=== PATIENT | female | born 1970 | race Two or more races ===

== ENCOUNTER 2023-03-25 20:10 | Emergency (ER) | payer OTHER ==
[~2023-03-25] VITALS: Ht 172.7 cm; Wt 108.5 kg
[2023-03-25 21:31] LABS: Basophils # (auto) 0.1 10 ^3/uL (0-0.2); Basophils % (auto) 0.6 % (0.0-2.0); Eosinophils # (auto) 0.1 10 ^3/uL (0-0.8); Eosinophils % (auto) 0.9 % (0.0-7.0); Hematocrit 43.8 % (36.0-46.0); Hemoglobin 14.6 g/dL (12.2-16.2); Lymphocytes # (auto) 1.4 10 ^3/uL (0.4-5.4); Mean Corpuscular Hemoglobin 28.8 pg (28.0-32.0); Mean Corpuscular Hgb Conc. 33.4 g/dL (32.0-36.0); Mean Corpuscular Volume 86.4 fL (80.0-100.0); Monocytes # (auto) 0.7 10 ^3/uL (0-1.3); Neutrophils # (auto) 7.7 10 ^3/uL (1.6-8.6); Neutrophils % (auto) 77.5 % (37.0-80.0); Nucleated Red Blood Cells % 0.1 %; Red Blood Cells 5.06 10^6/uL (4.0-5.20); Red Cell Distribution Width 14.8 % (11.8-14.3)
[2023-03-25 21:51] LABS: Alanine Aminotransferase 500 U/L (7-40); Alkaline Phosphatase 277 U/L (46-116); Anion Gap 8 (5-15); Aspartate Aminotransferase 386 U/L (13-40); Calcium 9.6 mg/dL (8.7-10.4); Carbon Dioxide 25 mmol/L (20-30); Chloride 103 mmol/L (98-107); Glucose 109 mg/dL (74-106); Lipase 45 U/L (12-53); Potassium 3.7 mmol/L (3.5-5.1); Sodium 136 mmol/L (136-145)
[2023-03-25 21:52] LABS: Albumin 4.7 g/dL (3.2-4.8)
[2023-03-25 21:54] LABS: BUN/Creatinine Ratio 6.8 (10.0-20.0); Blood Urea Nitrogen < 5 mg/dL (9-23)
[2023-03-25 22:22] LABS: Urine Bacteria NONE SEEN /hpf (None Seen); Urine Blood Negative /uL (Negative); Urine Clarity Clear (Clear); Urine Color Yellow (Yellow); Urine Protein, UAD Negative (Negative); Urine Specific Gravity 1.004 (1.001-1.035); Urine Urobilinogen Normal (Negative); Urine WBC 1 /hpf (0 - 5); Urine pH 6.5 (5.0-8.0)
[2023-03-26] MEDS ORDERED: ZOFR4T PO (03:06)
[2023-03-26] MEDS ORDERED: DICY10CA PO (03:06)
[2023-03-26] MEDS ORDERED: FAMO20TA10 PO (03:13)
[2023-03-26 09:59] VITALS: BP 136/72; TEMP 97.6
[2023-03-26 10:00] VITALS: PULSE 72; RESP 16; O2SAT 96
[2023-03-27 09:13] LABS: Hepatitis B Surface Antigen Negative (Negative)
[2023-03-27 09:33] LABS: Hepatitis A Ab IgM Negative
[2023-03-27 09:34] LABS: Hepatitis B Core IgM Negative
[2023-03-27 09:35] LABS: Hepatitis C Antibody Negative (Negative)
== END 2023-03-26 10:07 | disposition home or self-care (01) ==
LOC: ER 20:10
DX: D25.9 Leiomyoma of uterus, unspecified (principal); K76.0 Fatty (change of) liver, not elsewhere classified; K29.70 Gastritis, unspecified, without bleeding; R74.01 Elevation of levels of liver transaminase levels; E80.7 Disorder of bilirubin metabolism, unspecified; Z88.0 Allergy status to penicillin; Z88.2 Allergy status to sulfonamides; Z88.1 Allergy status to other antibiotic agents
CPT/HCPCS: 36415; 74176; 76705; 80053; 80074; 81001; 82977; 83690; 85025